=== PATIENT | female | born 1980 | race Caucasian/White ===

== ENCOUNTER 2016-10-21 10:39 | Emergency (ER) | payer OTHER | END 2016-10-21 14:00 | disposition home or self-care (01) | LOC: ER1 10:39 | DX: S01.01XA Laceration without foreign body of scalp, initial encounter (principal); S00.93XA Contusion of unspecified part of head, initial encounter; I10 Essential (primary) hypertension; E03.9 Hypothyroidism, unspecified; F41.9 Anxiety disorder, unspecified; F32.9 Major depressive disorder, single episode, unspecified; Y04.2XXA Assault by strike against or bumped into by another person, initial encounter | CPT/HCPCS: 12002; 70450; 70486; 71020; 72125; 90471; 90715; 99283 ==

== ENCOUNTER → 2016-11-23 | Outpatient (CLI) | payer OTHER | LOC: RAD 10:31 | DX: M25.561 Pain in right knee (principal); M54.5 Low back pain | CPT/HCPCS: 72082; 73562 ==

== ENCOUNTER → 2021-05-22 | Outpatient (CLI) | payer OTHER ==
[~2021-05-22] MED LIST: AMOXICILLIN500 MG PO; AUGMENTIN 875-1 EACH PO; FLEXERIL 10 MG10 MG PO; IBUPROFEN600 MG PO; NAPROSYN500 MG PO; NORCO 5-325 TA1 EACH PO
== END ==
LOC: KOH-I 13:24
DX: M54.9 Dorsalgia, unspecified (principal); M47.814 Spondylosis without myelopathy or radiculopathy, thoracic region; M47.816 Spondylosis without myelopathy or radiculopathy, lumbar region
CPT/HCPCS: 72070; 72100

== ENCOUNTER → 2021-06-19 | Outpatient (CLI) | payer OTHER | LOC: EMI 08:00 | DX: G43.009 Migraine without aura, not intractable, without status migrainosus (principal); G44.89 Other headache syndrome | CPT/HCPCS: 70551 ==

== ENCOUNTER → 2022-01-10 | Outpatient (CLI) | payer OTHER | LOC: US 14:36 | DX: R13.10 Dysphagia, unspecified (principal) | CPT/HCPCS: 76536 ==